=== PATIENT | female | born 1970 | race Caucasian/White ===

== ENCOUNTER 2022-10-02 16:31 | Inpatient (IN) | payer OTHER ==
[2022-10-02] MEDS ORDERED: Sodium Chloride 0.9% 1,000 ML IV STA (17:01)
[2022-10-02] MEDS ORDERED: Sodium Chloride 0.9% 10 ML Syringe FLUSH PRN (17:01)
[2022-10-02] MEDS ORDERED: Ondansetron 4 MG/2 ML SDV IVPUSH ONE (17:01)
[2022-10-02] MEDS ORDERED: HYDROmorphone 0.5 MG/0.5 ML Syringe IVPUSH ONE (17:03)
[2022-10-02] MEDS ORDERED: Iopamidol 612 MG/ML 100 ML Bottle IVPUSH ONE (17:15)
[2022-10-02] MEDS ORDERED: Sodium Chloride 0.9% 1,000 ML IV ONE (17:46)
[2022-10-02 18:10] LABS: CORONAVIRUS COVID-19 NAA NEGATIVE (NEGATIVE)
[2022-10-02] MEDS ORDERED: Lactated Ringers 1,000 ML IV ONE (18:56)
[2022-10-02] MEDS ORDERED: Insulin Regular in 0.9 % NACL 100 ML IV SCH (19:00)
[2022-10-02] MEDS ORDERED: Sodium Bicarbonate 150 MEQ in Dextrose 5% in Water 1,000 ML IV ONE ×4 (19:09→23:08)
[2022-10-02] MEDS ORDERED: Lactated Ringers 1,000 ML IV SCH (19:15)
[2022-10-02] MEDS ORDERED: HYDROmorphone 0.5 MG/0.5 ML Syringe IVPUSH PRN (22:31)
[2022-10-02] MEDS ORDERED: Ondansetron 4 MG/2 ML SDV IVPUSH PRN (22:31)
[2022-10-02] MEDS ORDERED: Acetaminophen/oxyCODONE 325-5 MG Tab PO PRN (22:31)
[2022-10-02] MEDS ORDERED: hydrALAZINE 20 MG/ML SDV IVPUSH PRN (22:31)
[2022-10-02] MEDS ORDERED: Acetaminophen 325 MG Tab PO PRN (22:31)
[2022-10-02] MEDS ORDERED: Sodium Bicarbonate 100 MEQ in Dextrose 5% in Water 1,000 ML IV ONE ×2 (22:34)
[2022-10-02] MEDS ORDERED: Albuterol/Ipratropium 3.0-0.5 MG/3 ML Neb Soln INH PRN (22:44)
[2022-10-03] MEDS: Heparin Sodium 5,000 Units/ML Vial SUBCUT SCH ×4 (00:06→23:20)
[2022-10-03] MEDS: Insulin Glargine,Human Rec. Analog 100 Units/ML 3 ML Pen SUBCUT SCH ×2 (07:33→08:06)
[2022-10-03] MEDS: Insulin Lispro 100 Unit/ML 3 ML KwikPen SUBCUT SCH ×6 (08:05→21:34)
[2022-10-03] MEDS: Pravastatin 20 MG Tab PO SCH (08:31)
[2022-10-03] MEDS: Multivitamin Tab PO SCH (08:32)
[2022-10-04] MEDS: Insulin Glargine,Human Rec. Analog 100 Units/ML 3 ML Pen SUBCUT SCH (08:27)
[2022-10-04] MEDS: Multivitamin Tab PO SCH (08:27)
[2022-10-04] MEDS: Heparin Sodium 5,000 Units/ML Vial SUBCUT SCH (08:27)
[2022-10-04] MEDS: Pravastatin 20 MG Tab PO SCH (08:27)
[2022-10-04] MEDS: Insulin Lispro 100 Unit/ML 3 ML KwikPen SUBCUT SCH ×4 (08:28→11:08)
== END 2022-10-04 14:31 | disposition home or self-care (01) | DRG 638 ==
LOC: JD.ED 16:31 → JD.ICU 19:21
PROVIDERS: ADMIT Internal Medicine; ATTEND Internal Medicine
DX: E10.10 Type 1 diabetes mellitus with ketoacidosis without coma (principal); A08.11 Acute gastroenteropathy due to Norwalk agent; N17.9 Acute kidney failure, unspecified; E87.1 Hypo-osmolality and hyponatremia; E86.0 Dehydration; F17.210 Nicotine dependence, cigarettes, uncomplicated; Z20.822 Contact with and (suspected) exposure to COVID-19; E87.5 Hyperkalemia; Z98.890 Other specified postprocedural states; Z79.4 Long term (current) use of insulin; Z79.899 Other long term (current) drug therapy; Z90.49 Acquired absence of other specified parts of digestive tract; Z90.81 Acquired absence of spleen
CPT/HCPCS: 0241U; 36415; 71045; 71045-26; 74177; 74177-26; 80048; 80053; 81001; 82009; 82800; 82947; 83930; 85025; 85027; 96361; 96374; 96375; 97110-GP; 97161-GP; 97166-GO; 99285; 99285-25; A9270-GY; J1170; J1644; J1815; J1815-GY; J2405; J3490; J7030; J7060; J7120

== ENCOUNTER 2023-03-18 16:37 | Inpatient (IN) | payer BC, MEDICAID ==
[2023-03-18] MEDS: Sodium Chloride 0.9% 1,000 ML IV ONE ×2 (16:50→18:10)
[2023-03-18] MEDS ORDERED: Insulin Regular, Human 100 Units/ML 3 ML Vial IV ONE (16:56)
[2023-03-18] MEDS ORDERED: Insulin Regular, Human 100 Units/ML 3 ML Vial ONE (16:57)
[2023-03-18] MEDS ORDERED: Sodium Chloride 0.9% 1,000 ML IV ONE (17:00)
[2023-03-18 17:06] LABS: EOSINOPHILS ABSOLUTE AUTO 0.1 K/mm3 (0.0-0.4); EOSINOPHILS PERCENT AUTO 0.2 % (0.0-6.0); HEMOGLOBIN 13.5 gm/dl (12.0-16.0); IMMATURE GRAN ABSOLUTE AUTO 0.81 K/mm3 (0.00-0.05); IMMATURE GRAN PERCENT AUTO 3.1 % (0.0-0.4); LYMPHOCYTES ABSOLUTE AUTO 5.4 K/mm3 (1.0-4.8); LYMPHOCYTES PERCENT AUTO 20.6 % (24.0-44.0); MEAN CORPUSCULAR HEMOGLOBIN 31.2 pg (28.0-32.0); MEAN CORPUSCULAR VOLUME 103.9 fl (83.0-99.0); MEAN PLATELET VOLUME 11.1 fl (9.4-12.3); MONOCYTES ABSOLUTE AUTO 2.3 K/mm3 (0.0-0.8); MONOCYTES PERCENT AUTO 8.9 % (0.0-8.0); NEUTROPHILS ABSOLUTE AUTO 17.6 K/mm3 (1.8-7.7); NEUTROPHILS PERCENT AUTO 67.2 % (41.0-71.0); PLATELET COUNT,PLT 253 K/mm3 (150-400); RED BLOOD CELL COUNT 4.33 M/mm3 (4.10-5.30); WHITE BLOOD CELL COUNT,WBC 26.14 K/mm3 (3.9-11.3)
[2023-03-18 17:17] LABS: O2 SATURATION ARTERIAL 96.7 % (96.0-97.0)
[2023-03-18 17:19] LABS: INR 1.02; PROTHROMBIN TIME 10.9 SECONDS (9.7-12.0)
[2023-03-18 17:21] LABS: BASE EXCESS ARTERIAL -31.5 (-2-2.0); BICARBONATE,ARTERIAL 1.7 meq/L (22.0-26.0); PCO2 ARTERIAL 9.7 mmHg (35.0-45.0)
[2023-03-18 17:30] LABS: A/G RATIO 0.7 (1-2); ALBUMIN 3.2 g/dl (3.4-5.0); BILIRUBIN TOTAL 0.8 mg/dL (0.2-1.0); BUN/CREATININE RATIO 21.3 (14-18); CALCIUM 8.1 mg/dL (8.5-10.1); CREATININE 1.5 mg/dL (0.55-1.02); EST CRCL DRUG DOSING (CG) 47.98 mL/min; PROTEIN TOTAL,TP 7.7 g/dl (6.4-8.2)
[2023-03-18] MEDS: Insulin Regular in 0.9 % NACL 100 ML IV SCH (17:32)
[2023-03-18 17:37] LABS: LACTIC ACID 3.2 mmol/L (0.4-2.0)
[2023-03-18 17:38] LABS: ANION GAP 40.7 (5-15)
[2023-03-18 17:39] LABS: POTASSIUM,K 6.7 mEq/L (3.5-5.1)
[2023-03-18] MEDS ORDERED: Acetaminophen 325 MG Tab PO PRN (18:04)
[2023-03-18] MEDS ORDERED: Ondansetron 4 MG/2 ML SDV IV PRN (18:04)
[2023-03-18] MEDS ORDERED: Albuterol/Ipratropium 3.0-0.5 MG/3 ML Neb Soln NEB PRN (18:04)
[2023-03-18] MEDS ORDERED: Calcium Gluconate 10% 1 GM/10 ML SDV IVPUSH ONE (18:14)
[2023-03-18] MEDS ORDERED: Sodium Chloride 0.9% 1,000 ML IV SCH ×2 (18:15→18:45)
[2023-03-18 18:19] LABS: HEMOGLOBIN A1C 9.4 %
[2023-03-18 18:21] LABS: APPEARANCE,URINE CLEAR (Clear); BILIRUBIN,URINE NEGATIVE (Negative); COLOR,URINE YELLOW (Yellow); GLUCOSE,URINE 2+ (Negative); KETONES,URINE 4+ (Negative); LEUKOCYTE ESTERASE,URINE NEGATIVE (Negative); NITRITE,URINE NEGATIVE (Negative); OCCULT BLOOD,URINE 1+ (Negative); PH,URINE 5.5 (5.0-8.0); PROTEIN,URINE 2+ (Negative); UROBILINOGEN,URINE 0.2 (0.2-1.0)
[2023-03-18 18:39] LABS: RBC,URINE 0-5 /hpf (0-5)
[2023-03-18 18:40] LABS: BACTERIA,URINE MODERATE /hpf (FEW); FINE GRANULAR CASTS,URINE 0-5 /lpf (0-5); MUCUS,URINE FEW /hpf (FEW); SQUAMOUS EPITHELIAL CELLS,UR 0-5 /hpf (0-5); WBC,URINE 0-5 /hpf (0-5)
[2023-03-18 18:42] LABS: CORONAVIRUS COVID-19 NAA NEGATIVE (NEGATIVE); INFLUENZA A NAA NEGATIVE (NEGATIVE); RESPIRATORY SYNCYTIAL VIR NAA NEGATIVE (NEGATIVE)
[2023-03-18 18:47] LABS: BLOOD UREA NITROGEN,BUN 30 mg/dL (7-18); CALCIUM 7.4 mg/dL (8.5-10.1); CHLORIDE,CL 97 mEq/L (98-107); CREATININE 1.5 mg/dL (0.55-1.02); EST CRCL DRUG DOSING (CG) 47.98 mL/min; ESTIMATED GFR 42 mL/min (>60); POTASSIUM,K 5.3 mEq/L (3.5-5.1); SODIUM,NA 130 mEq/L (136-145)
[2023-03-18 18:55] LABS: ANION GAP 33.3 (5-15); CARBON DIOXIDE,CO2 < 5 mEq/L (21-32); GLUCOSE RANDOM 629 mg/dL (70-99)
[2023-03-18] MEDS: LORazepam 2 MG/ML SDV IVPUSH PRN (19:36)
[2023-03-18] MEDS: Heparin Sodium 5,000 Units/ML Vial SUBCUT SCH (19:37)
[2023-03-18] MEDS: Nicotine 21 MG/24 Hr Patch TRDERM SCH (19:38)
[2023-03-18] MEDS: Pantoprazole 40 MG Vial IVPUSH SCH (19:38)
[2023-03-18] MEDS ORDERED: cefTRIAXone 2 GM in Sodium Chloride 0.9% 100 ML IV ONE (19:44)
[2023-03-18] MEDS ORDERED: NS + KCl 20mEq/L 1,000 ML IV SCH (21:30)
[2023-03-18] MEDS ORDERED: PHENobarbital Sodium 65 MG/ML SDV IVPUSH ONE (22:00)
[2023-03-19] MEDS: Insulin Regular in 0.9 % NACL 100 ML IV SCH ×2 (01:02→14:52)
[2023-03-19] MEDS: LORazepam 2 MG/ML SDV IVPUSH PRN ×2 (01:15→07:47)
[2023-03-19] MEDS: Heparin Sodium 5,000 Units/ML Vial SUBCUT SCH ×3 (02:36→18:04)
[2023-03-19] MEDS ORDERED: D5 1/2 NS w/ 20 mEq/L KCl 1,000 ML IV SCH (02:45)
[2023-03-19 03:35] LABS: ANION GAP 25.3 (5-15); BUN/CREATININE RATIO 21.5 (14-18); CALCIUM 7.2 mg/dL (8.5-10.1); CREATININE 1.3 mg/dL (0.55-1.02); EST CRCL DRUG DOSING (CG) 40.49 mL/min
[2023-03-19 03:41] LABS: POTASSIUM,K 4.3 mEq/L (3.5-5.1)
[2023-03-19] MEDS ORDERED: Insulin Glargine,Human Rec. Analog 100 Units/ML 3 ML Pen SUBCUT SCH ×2 (05:45→18:00)
[2023-03-19 06:01] LABS: A/G RATIO 0.7 (1-2); ALBUMIN 2.6 g/dl (3.4-5.0); ANION GAP 19.3 (5-15); BILIRUBIN TOTAL 0.2 mg/dL (0.2-1.0); CALCIUM 7.1 mg/dL (8.5-10.1); CREATININE 1.2 mg/dL (0.55-1.02); EST CRCL DRUG DOSING (CG) 43.87 mL/min; MAGNESIUM 1.6 mg/dL (1.8-2.4); POTASSIUM,K 4.3 mEq/L (3.5-5.1); PROTEIN TOTAL,TP 6.4 g/dl (6.4-8.2)
[2023-03-19 07:11] LABS: BASOPHILS ABSOLUTE AUTO 0.1 K/mm3 (0.0-0.2); BASOPHILS PERCENT AUTO 0.3 % (0.0-1.0); HEMATOCRIT 37.8 % (37.0-47.0); HEMOGLOBIN 12.6 gm/dl (12.0-16.0); IMMATURE GRAN ABSOLUTE AUTO 0.43 K/mm3 (0.00-0.05); IMMATURE GRAN PERCENT AUTO 1.9 % (0.0-0.4); LYMPHOCYTES ABSOLUTE AUTO 3.2 K/mm3 (1.0-4.8); LYMPHOCYTES PERCENT AUTO 14.4 % (24.0-44.0); MEAN CORPUSCULAR HGB CONC 33.3 g/dl (32.0-36.0); MEAN PLATELET VOLUME 10.3 fl (9.4-12.3); MONOCYTES ABSOLUTE AUTO 2.6 K/mm3 (0.0-0.8); MONOCYTES PERCENT AUTO 11.4 % (0.0-8.0); NEUTROPHILS ABSOLUTE AUTO 16.1 K/mm3 (1.8-7.7); PLATELET COUNT,PLT 188 K/mm3 (150-400); RED BLOOD CELL COUNT 4.06 M/mm3 (4.10-5.30); WHITE BLOOD CELL COUNT,WBC 22.38 K/mm3 (3.9-11.3)
[2023-03-19 07:25] LABS: MEAN CORPUSCULAR VOLUME 93.1 fl (83.0-99.0)
[2023-03-19] MEDS ORDERED: Magnesium Sulfate/Water 2 GM in Premix Bag 1 BAG IV ONE (08:00)
[2023-03-19 09:03] LABS: SLIDE REVIEW ABNORMAL SMEAR
[2023-03-19] MEDS: Pantoprazole 40 MG Vial IVPUSH SCH (09:12)
[2023-03-19] MEDS: Nicotine 21 MG/24 Hr Patch TRDERM SCH (09:14)
[2023-03-19] MEDS ORDERED: guaiFENesin/Dextromethorphan 100-10 MG/5 ML Soln 5 ML Cup PO ONE (10:23)
[2023-03-19 10:57] LABS: CALCIUM 7.5 mg/dL (8.5-10.1); POTASSIUM,K 3.7 mEq/L (3.5-5.1)
[2023-03-19 11:03] LABS: ANION GAP 22.7 (5-15); BUN/CREATININE RATIO 21.8 (14-18); CREATININE 1.1 mg/dL (0.55-1.02); EST CRCL DRUG DOSING (CG) 47.85 mL/min
[2023-03-19] MEDS: D5 1/2 NS w/ 20 mEq/L KCl 1,000 ML IV SCH ×2 (11:35→18:32)
[2023-03-19 13:32] LABS: ANION GAP 19.8 (5-15); BUN/CREATININE RATIO 18.2 (14-18); CALCIUM 7.6 mg/dL (8.5-10.1); CREATININE 1.1 mg/dL (0.55-1.02); EST CRCL DRUG DOSING (CG) 47.85 mL/min; POTASSIUM,K 3.8 mEq/L (3.5-5.1)
[2023-03-19] MEDS ORDERED: guaiFENesin/Dextromethorphan 100-10 MG/5 ML Soln 5 ML Cup PO SCH (14:00)
[2023-03-19 17:13] LABS: ANION GAP 13.7 (5-15); CALCIUM 7.6 mg/dL (8.5-10.1); EST CRCL DRUG DOSING (CG) 52.64 mL/min; POTASSIUM,K 3.7 mEq/L (3.5-5.1)
[2023-03-19] MEDS: cefTRIAXone 2 GM in Sodium Chloride 0.9% 100 ML IV SCH (19:37)
[2023-03-19] MEDS: Insulin Lispro 100 Unit/ML 3 ML KwikPen SUBCUT SCH (20:33)
[2023-03-20] MEDS: Heparin Sodium 5,000 Units/ML Vial SUBCUT SCH (01:27)
[2023-03-20 05:43] LABS: BASOPHILS PERCENT AUTO 0.2 % (0.0-1.0); EOSINOPHILS PERCENT AUTO 0.1 % (0.0-6.0); HEMATOCRIT 35.8 % (37.0-47.0); HEMOGLOBIN 12.3 gm/dl (12.0-16.0); IMMATURE GRAN ABSOLUTE AUTO 0.04 K/mm3 (0.00-0.05); IMMATURE GRAN PERCENT AUTO 0.3 % (0.0-0.4); LYMPHOCYTES ABSOLUTE AUTO 2.6 K/mm3 (1.0-4.8); LYMPHOCYTES PERCENT AUTO 21.8 % (24.0-44.0); MEAN CORPUSCULAR HEMOGLOBIN 30.1 pg (28.0-32.0); MEAN CORPUSCULAR HGB CONC 34.4 g/dl (32.0-36.0); MEAN CORPUSCULAR VOLUME 87.5 fl (83.0-99.0); MEAN PLATELET VOLUME 12.9 fl (9.4-12.3); MONOCYTES ABSOLUTE AUTO 0.8 K/mm3 (0.0-0.8); MONOCYTES PERCENT AUTO 6.5 % (0.0-8.0); NEUTROPHILS ABSOLUTE AUTO 8.5 K/mm3 (1.8-7.7); NEUTROPHILS PERCENT AUTO 71.1 % (41.0-71.0); NRBC ABSOLUTE 0.03 (0.00-0.02); NRBC PERCENT 0.2 % (0.0-0.2); PLATELET COUNT,PLT 120 K/mm3 (150-400); RED BLOOD CELL COUNT 4.09 M/mm3 (4.10-5.30); WHITE BLOOD CELL COUNT,WBC 12.01 K/mm3 (3.9-11.3)
[2023-03-20] MEDS: LORazepam 2 MG/ML SDV IVPUSH PRN (07:00)
[2023-03-20] MEDS: Insulin Lispro 100 Unit/ML 3 ML KwikPen SUBCUT SCH ×4 (07:38→20:26)
[2023-03-20 07:41] LABS: SLIDE REVIEW ABNORMAL SMEAR
[2023-03-20 08:30] LABS: A/G RATIO 0.6 (1-2); ALBUMIN 2.3 g/dl (3.4-5.0); ANION GAP 12.2 (5-15); BILIRUBIN TOTAL 0.3 mg/dL (0.2-1.0); BUN/CREATININE RATIO 11.1 (14-18); C-REACTIVE PROTEIN 2.6 mg/dL (<1.0); CALCIUM 7.8 mg/dL (8.5-10.1); CREATININE 0.9 mg/dL (0.55-1.02); EST CRCL DRUG DOSING (CG) 58.49 mL/min; MAGNESIUM 2.2 mg/dL (1.8-2.4); PROTEIN TOTAL,TP 5.9 g/dl (6.4-8.2)
[2023-03-20 08:33] LABS: POTASSIUM,K 3.2 mEq/L (3.5-5.1)
[2023-03-20] MEDS: Pantoprazole 40 MG Vial IVPUSH SCH (09:11)
[2023-03-20] MEDS: Nicotine 21 MG/24 Hr Patch TRDERM SCH (09:11)
[2023-03-20] MEDS: Insulin Glargine,Human Rec. Analog 100 Units/ML 3 ML Pen SUBCUT SCH ×2 (09:12→20:26)
[2023-03-20] MEDS: Potassium Chloride 10 MEQ in Premix Bag 1 BAG IV SCH ×4 (10:32→13:59)
[2023-03-20 13:01] LABS: BASE EXCESS ARTERIAL -2.6 (-2-2.0); BICARBONATE,ARTERIAL 20.3 meq/L (22.0-26.0); O2 SATURATION ARTERIAL 93.3 % (96.0-97.0); PCO2 ARTERIAL 30.9 mmHg (35.0-45.0)
[2023-03-20] MEDS: cefTRIAXone 2 GM in Sodium Chloride 0.9% 100 ML IV SCH (20:23)
[2023-03-21 05:50] LABS: BASOPHILS ABSOLUTE AUTO 0.1 K/mm3 (0.0-0.2); BASOPHILS PERCENT AUTO 0.6 % (0.0-1.0); EOSINOPHILS ABSOLUTE AUTO 0.1 K/mm3 (0.0-0.4); EOSINOPHILS PERCENT AUTO 0.9 % (0.0-6.0); HEMATOCRIT 36.1 % (37.0-47.0); HEMOGLOBIN 12.5 gm/dl (12.0-16.0); IMMATURE GRAN ABSOLUTE AUTO 0.01 K/mm3 (0.00-0.05); IMMATURE GRAN PERCENT AUTO 0.1 % (0.0-0.4); LYMPHOCYTES ABSOLUTE AUTO 2.9 K/mm3 (1.0-4.8); LYMPHOCYTES PERCENT AUTO 36.5 % (24.0-44.0); MEAN CORPUSCULAR HEMOGLOBIN 30.8 pg (28.0-32.0); MEAN CORPUSCULAR HGB CONC 34.6 g/dl (32.0-36.0); MEAN CORPUSCULAR VOLUME 88.9 fl (83.0-99.0); MEAN PLATELET VOLUME 11.2 fl (9.4-12.3); MONOCYTES ABSOLUTE AUTO 0.8 K/mm3 (0.0-0.8); MONOCYTES PERCENT AUTO 10.7 % (0.0-8.0); NEUTROPHILS PERCENT AUTO 51.2 % (41.0-71.0); PLATELET COUNT,PLT 194 K/mm3 (150-400); RED BLOOD CELL COUNT 4.06 M/mm3 (4.10-5.30); WHITE BLOOD CELL COUNT,WBC 7.86 K/mm3 (3.9-11.3)
[2023-03-21 06:00] LABS: A/G RATIO 0.6 (1-2); ALBUMIN 2.3 g/dl (3.4-5.0); ANION GAP 13.8 (5-15); BILIRUBIN TOTAL 0.7 mg/dL (0.2-1.0); BUN/CREATININE RATIO 16.7 (14-18); C-REACTIVE PROTEIN 1.6 mg/dL (<1.0); CALCIUM 8.2 mg/dL (8.5-10.1); CREATININE 0.6 mg/dL (0.55-1.02); EST CRCL DRUG DOSING (CG) 87.73 mL/min
[2023-03-21 06:02] LABS: POTASSIUM,K 3.8 mEq/L (3.5-5.1)
[2023-03-21] MEDS: Insulin Lispro 100 Unit/ML 3 ML KwikPen SUBCUT SCH ×4 (08:06→21:26)
[2023-03-21] MEDS: Pantoprazole 40 MG Vial IVPUSH SCH (08:14)
[2023-03-21] MEDS: Nicotine 21 MG/24 Hr Patch TRDERM SCH (08:15)
[2023-03-21] MEDS ORDERED: Insulin Glargine,Human Rec. Analog 100 Units/ML 3 ML Pen SUBCUT SCH ×2 (09:00→21:00)
[2023-03-21] MEDS: Enoxaparin 40 MG/0.4 ML Syringe SUBCUT SCH (09:39)
[2023-03-21 19:09] LABS: BARBITURATE SCREEN,URINE PRESUMPTIVE POSITIVE (CUTOFF=200); BENZODIAZEPINES SCREEN,URINE PRESUMPTIVE POSITIVE (CUTOFF=150); BUPRENORPHINE SCREEN,URINE NEGATIVE (CUTOFF=10); METHADONE SCREEN, URINE NEGATIVE (CUTOFF=200); METHAMPHETAMINES SCREEN, URINE NEGATIVE (CUTOFF=500); OXYCODONE SCREEN,URINE NEGATIVE (CUT0FF=100); PROPOXYPHENE SCREEN,URINE NEGATIVE (CUTOFF=300); THC SCREEN,URINE 20 NG/ML NEGATIVE (CUTOFF=50)
[2023-03-21 19:17] LABS: AMPHETAMINES SCREEN, URINE NEGATIVE (CUTOFF=500)
[2023-03-22 05:40] LABS: A/G RATIO 0.6 (1-2); ALBUMIN 2.3 g/dl (3.4-5.0); ANION GAP 10.3 (5-15); BILIRUBIN TOTAL 0.7 mg/dL (0.2-1.0); C-REACTIVE PROTEIN 1.1 mg/dL (<1.0); CALCIUM 8.5 mg/dL (8.5-10.1); CREATININE 0.4 mg/dL (0.55-1.02); EST CRCL DRUG DOSING (CG) 131.6 mL/min; MAGNESIUM 1.7 mg/dL (1.8-2.4); POTASSIUM,K 3.3 mEq/L (3.5-5.1); PROTEIN TOTAL,TP 6.2 g/dl (6.4-8.2)
[2023-03-22 05:49] LABS: BASOPHILS ABSOLUTE AUTO 0.1 K/mm3 (0.0-0.2); BASOPHILS PERCENT AUTO 1.3 % (0.0-1.0); EOSINOPHILS ABSOLUTE AUTO 0.2 K/mm3 (0.0-0.4); EOSINOPHILS PERCENT AUTO 3.1 % (0.0-6.0); HEMATOCRIT 37.1 % (37.0-47.0); HEMOGLOBIN 12.9 gm/dl (12.0-16.0); IMMATURE GRAN ABSOLUTE AUTO 0.01 K/mm3 (0.00-0.05); IMMATURE GRAN PERCENT AUTO 0.1 % (0.0-0.4); LYMPHOCYTES ABSOLUTE AUTO 3.6 K/mm3 (1.0-4.8); LYMPHOCYTES PERCENT AUTO 50.7 % (24.0-44.0); MEAN CORPUSCULAR HGB CONC 34.8 g/dl (32.0-36.0); MEAN CORPUSCULAR VOLUME 89.2 fl (83.0-99.0); MEAN PLATELET VOLUME 11.2 fl (9.4-12.3); MONOCYTES ABSOLUTE AUTO 0.9 K/mm3 (0.0-0.8); MONOCYTES PERCENT AUTO 12.2 % (0.0-8.0); NEUTROPHILS ABSOLUTE AUTO 2.3 K/mm3 (1.8-7.7); NEUTROPHILS PERCENT AUTO 32.6 % (41.0-71.0); PLATELET COUNT,PLT 206 K/mm3 (150-400); RED BLOOD CELL COUNT 4.16 M/mm3 (4.10-5.30); WHITE BLOOD CELL COUNT,WBC 7.16 K/mm3 (3.9-11.3)
[2023-03-22] MEDS: Insulin Lispro 100 Unit/ML 3 ML KwikPen SUBCUT SCH ×2 (06:31→11:38)
[2023-03-22] MEDS ORDERED: Potassium Chloride 20 MEQ Tab.ER PO ONE (08:12)
[2023-03-22] MEDS ORDERED: Magnesium Sulfate/Water 2 GM in Premix Bag 1 BAG IV ONE (08:12)
[2023-03-22] MEDS: Nicotine 21 MG/24 Hr Patch TRDERM SCH (08:22)
[2023-03-22] MEDS: Pantoprazole 40 MG Vial IVPUSH SCH (08:33)
[2023-03-22] MEDS ORDERED: Insulin Glargine,Human Rec. Analog 100 Units/ML 3 ML Pen SUBCUT SCH (09:00)
[2023-03-22] MEDS: Enoxaparin 40 MG/0.4 ML Syringe SUBCUT SCH (09:08)
== END 2023-03-22 13:26 | disposition home or self-care (01) | DRG 420 ==
LOC: JD.ED 16:37 → JD.ICU 18:04
PROVIDERS: ADMIT Internal Medicine; ATTEND Internal Medicine
DX: E10.10 Type 1 diabetes mellitus with ketoacidosis without coma (principal); E87.1 Hypo-osmolality and hyponatremia; E86.0 Dehydration; E87.5 Hyperkalemia; N28.9 Disorder of kidney and ureter, unspecified; T68.XXXA Hypothermia, initial encounter; G93.41 Metabolic encephalopathy; F17.200 Nicotine dependence, unspecified, uncomplicated; E83.42 Hypomagnesemia; E87.6 Hypokalemia; D69.6 Thrombocytopenia, unspecified; I10 Essential (primary) hypertension; Z79.899 Other long term (current) drug therapy; Z90.49 Acquired absence of other specified parts of digestive tract; Z90.81 Acquired absence of spleen
CPT/HCPCS: 0241U; 36415; 36600; 70450; 70450-26; 71045; 71045-26; 80048; 80053; 80306; 80307; 81001; 82009; 82803; 82947; 83036; 83605; 83690; 83735; 84145; 84484; 85025; 85610; 86140; 87040; 93005; 93010; 93971-26-LT; 93971-LT; 94761; 94762; 96360; 97116-GP; 97162-GP; 97530-GP; 99223; 99232; 99233; 99239; 99285; 99285-25; A9270-GY; C9113; J0612; J0696; J1644; J1650; J1815; J1815-GY; J2060; J2560; J3475; J3480; J3490; J7030